=== PATIENT | female | born 1990 ===

== ENCOUNTER 2016-11-21 01:02 | Inpatient (IN) ==
[2016-11-21 00:57] LABS: Basophils % 0.4 %; Eosinophils # 0.2 K/mcL (0.0-0.6); Eosinophils % 1.9 %; Hematocrit 37.8 % (35.3-44.9); Hemoglobin 12.8 g/dL (11.5-15.4); Immature Granulocytes % 1.7 % (0-4); Lymphocytes # 2.6 K/mcL (0.6-4.6); Lymphocytes % 24.6 %; Mean Corpuscular HGB Conc 33.9 g/dL (31.6-35.5); Mean Corpuscular Hemoglobin 28.3 pg (28.0-33.3); Mean Corpuscular Volume 83.6 fL (83.0-100.0); Mean Platelet Volume 10.3 fL (9.4-12.4); Monocytes # 0.7 K/mcL (0.0-1.3); Monocytes % 6.1 %; Platelet Count 262 K/mcL (140-400); Red Blood Count 4.52 M/mcL (3.82-4.97); Red Cell Distribution Width 12.9 % (11.5-14.5); Segmented Neutrophils % 65.3 %
[2016-11-21 00:58] LABS: Bilirubin,Urine Negative (Negative); Blood,Urine Negative (Negative); Clarity,Urine Clear (Clear); Color,Urine Yellow (Yellow); Glucose,Urine (UA) Normal (Normal); Ketones,Urine Negative (Negative); Leukocyte Esterase,Urine Negative (Negative); Nitrite,Urine Negative (Negative); PH,Urine 6.5 pH Units (5.0-8.0); Protein,Urine Negative (Neg-Trace); Specific Gravity,Urine 1.012 (1.010-1.025); Urobilinogen,Urine Normal (Normal)
[~2016-11-21 01:02] MED LIST: Famotidine 20 MG/2 ML VIAL IVP PRN; Naloxone 0.4 MG/ML INJ IVP PRN; Penicillin G Potassium 5,000,000 UNIT in D5% in Water (Mini-Bag+) 100 ML IVPB ONE; Ringers Solution, Lactated 1,000 ML IVC SCH; Ringers Solution, Lactated 1,000 ML ONE
[2016-11-21 01:03] LABS: Amphetamine Screen,Urine Negative ng/mL (Cutoff=1000); Barbiturate Screen,Urine Negative ng/mL (Cutoff=200); Benzodiazepines Screen,Urine Negative ng/mL (Cutoff=200); Cannabinoid Screen,Urine Negative ng/mL (Cutoff = 50); Cocaine Screen,Urine Negative ng/mL (Cutoff= 300); Opiate Screen,Urine Negative ng/mL (Cutoff=300); Phencyclidine Screen,Urine Negative ng/mL (Cutoff=25)
[2016-11-21 03:22] LABS: Hepatitis B Surface Antigen Nonreactive (Nonreactive)
[2016-11-21] MEDS ORDERED: *HR* Nalbuphine 20 MG/ML AMPUL IM PRN (03:51)
[2016-11-21] MEDS: Penicillin G Potassium 2,500,000 UNIT in D5% in Water 100 ML IVPB SCH ×5 (05:40→22:21)
--- NOTE | 2016-11-21 09:53 | Anesthesia Evaluation PreOp ---
Date of Encounter: 11/21/16 Time of Encounter: 09:10 - Past History Planned Operation: epidural Cardiac History: Denies any Significant Hx Pulmonary History: Denies Any Significant HX HYDROCHLORIC MANUFACTURING SUPERVISOR History: Denies Any Significant HX Other Medical History: GERD Anesthesia History: No Prior Anesthetic Complications (never had anesthesia, no family history of anesthesia problems) : Yes Test: Positive Alcohol Use: none Drug use: none Medications and Allergies Cephalexin [Keflex] 500 mg PO 11/21/16 [History] Vit Calc,Iron,Folic [ Vitamins] 1 each PO 11/21/16 [History] Allergies No Known Allergies Allergy (Verified 11/21/16 00:10) - Meds/Allergy Pre-op Review Medications Reviewed: Yes Allergies Reviewed: Yes Beta Blockers on Current Med List: No Anesthesia Results - Labs 11/21/16 00:44 Anesthesia Exam 3 Vital Signs Time 0910 BP 122/70 Pulse Resp O2 Sat Height: 64 inches Weight: 83 kg NPO (# of Hours): 8 hours solids Pain Scale: 2 Pain Scale Used: Numeric (1 - 10) - HEENT Pupil (Motor): Pupils equal Mallampati: II Teeth: Normal Oral Opening: Greater than 3 - HYDROCHLORIC MANUFACTURING SUPERVISOR LOC: Oriented HYDROCHLORIC MANUFACTURING SUPERVISOR Motor: Normal RUE, Normal LUE, Normal RLE, Normal LLE, Normal Face HYDROCHLORIC MANUFACTURING SUPERVISOR Sensory: Normal: RUE, LUE, RLE, LLE, Face - Cardiac Rhythm: Regular Murmur: None JVD: No Carotid Bruit: No - Pulmonary Breath Sounds: bilateral Clear Respiratory Effort: Symmetrical - Additional Findings patient does not speak luxembourgish, all verbal interactions done through phone investor relations specialist Anesthesia Assess/Plan ASA Score: 2 Modified Marlee Scale for Level of Consciousness: Cooperative, oriented, and tranquil Anesthetic Plan: Regional Monitoring Plan: Standard Monitors
--- NOTE | 2016-11-21 10:55 | OB/GYN History & Physical ---
Date of Encounter: 11/21/16 Time of Encounter: 10:34 Assessment and Plan (1) 41 weeks gestation of Current visit: Yes Status: Acute will begin augmentation with pitocin ok for epidural if required, PCN for GBS unknown, labs drawn, anticipate History of Present Illness HPI: Ms. Peggy La is a 26 year old female @ 41+0 weeks by 2nd trimester with limited PNC who presents today in labor. She works for a [employer] and has been moving from State to state visiting clinics/ED. She is [place] speaking, reports that she has no medical problems, no surgical history and this has been uncomplicated so far. She does not report leaking, bleeding or contractions. She feels good FM. GBS unknown. Past Med Surg Social Fam HX - Past Medical History Medical history: no medical history Psychiatric history: no psych history - Past Surgical History Surgical History: no surgical history - Social History Smoking Status: Never smoker Smokeless Tobacco Status: No Alcohol use: none Drug use: none - Family History Maternal Grandmother Adopted: No Hx Family Endocrine Disorder: Yes (diabetes) Hx Family Musculoskeletal Disorders: No Hx Family Neuromuscular Disorders: No Hx Family Neurologic Disorders: No Hx Family HEENT Disorders: No Hx Family Autoimmune Disorders: No Hx Family Reproductive Disorders: No Hx Family Psychosocial Disorders: No Hx Family Medical Disorders: No Obstetrical History - Pregnancies : 1 Medications and Allergies Cephalexin [Keflex] 500 mg PO 11/21/16 [History] Vit Calc,Iron,Folic [ Vitamins] 1 each PO 11/21/16 [History] Allergies No Known Allergies Allergy (Verified 11/21/16 00:10) Review of System OB All systems PM: reviewed and no additional remarkable complaints except as stated Exam - Constitutional Constitutional: well developed - HEENT HEENT: PERRL - Neck Neck exam: supple - Lungs Respiratory exam: CTAB - Cardiovascular Cardiovascular exam: RRR - Abdomen Abdomen: Present: bowel sounds normal - Extremities Extremities exam: warm - Cervix Dilation: 4 Results Result Diagrams: 11/21/16 00:44 All other labs normal. - VTE Reasons for not Prescribing Prophylaxis: Treatment not Indicated - Low risk for VTE
[2016-11-21] MEDS ORDERED: Famotidine 20 MG/2 ML VIAL IVP PRN (11:12)
[2016-11-21] MEDS ORDERED: Naloxone 0.4 MG/ML INJ IVP PRN (11:12)
[2016-11-21] MEDS ORDERED: Ringers Solution, Lactated 1,000 ML IVC SCH (11:15)
[2016-11-21] MEDS ORDERED: Oxytocin 20 units/ LR 1000 mL 20 UNIT/1,000 ML BAG IVC SCH (11:15)
[2016-11-21] MEDS ORDERED: Oxytocin 20 units/ LR 1000 mL 20 UNIT/1,000 ML BAG IVC ONE (11:39)
--- NOTE | 2016-11-21 13:28 | OB Labor Progress Note ---
Date of Encounter: 11/21/16 Time of Encounter: 13:26 Labor Progress Note - Plan Plan: patient doing well, pitocin now @ 6 VSS FHT CAT 1, will AROM with further dilation(patient discomfort) now 4-5cm/80%/-2 cont pitocin, anticipate
[2016-11-21] MEDS ORDERED: Bupivacaine-MPF 0.25% 10 ML VIAL EP ONE (18:47)
[2016-11-21] MEDS ORDERED: *HR* FentaNYL (PF) 100 MCG/2 ML VIAL EP ONE (18:47)
[2016-11-21] MEDS ORDERED: Epidural Premix (fent/bupiv) 110 ML EP ONE (18:52)
[2016-11-21] MEDS ORDERED: Epidural Premix (fent/bupiv) 110 ML EP SCH (19:00)
--- NOTE | 2016-11-21 19:21 | Anesthesia Procedures ---
Date of Encounter: 11/21/16 Time of Encounter: 19:02 Procedures: Anesthesia - Epidural/Spinal Patient examined: Yes OB Eval: Gestational age: 40 OB Eval: : 1 OB Eval: Hx Para: 0 OB Eval: Dilated at (cm): 6 OB Eval: Contractions: Non-stressed pattern Consent Obtained: Yes Supplemental Oxygen: None/Room Air Site Prep: Aseptic Technique, Sterile prep and drape, Povidone-Iodine 1% Patient position: upright Local Anesthetic: Lidocaine 1% Amount of Local Anesthetic used: 3 Touhy Needle Gauge: 18 Touhy Needle Depth (cm): 6 Catheter Depth at Skin (cm): 12 Test Dose (1.5% Lido + Epi): Volume given (mls): 3 Test Dose Result: Negative Loading Dose: 0.25% Marcaine (mls): 10 Loading Dose: Fentanyl (mcg): 100 Loading Dose: Other: 8 ml saline Loading Dose Administered: Thru Touhy Needle Infusion Med: 0.125% Bupivacaine w/ 2 mcg/ml Fentanyl Infusion Rate (mls/hr): [address]: Tegaderm, Tape Interspace Used: L3-L4 Loss of Resistance (EZ): Yes Blood: No CSF: No Paresthesia: No Procedure: 3 Vital Signs Time 190 start 1905 cath 1914 finish BP 136/85 126/79 115/81 Pulse 93 88 80 Resp 16 16 16 O2 Sat heart tones 145 throughout procedure performed by Dr Ash
--- NOTE | 2016-11-21 20:36 | OB Labor Progress Note ---
Date of Encounter: 11/21/16 Time of Encounter: 20:31 Labor Progress Note - Plan Plan: patient AROM'ed, comfortable with epidural, VSS continue pitocin, FHT CAT 1, anticipate vaginal delivery
--- NOTE | 2016-11-21 23:33 | OB Labor Progress Note ---
Date of Encounter: 11/21/16 Time of Encounter: 23:31 Labor Progress Note - Plan Plan: Patient continues to do well, VSS cervix checked and 5-6cm, cont going up on pitocin, anticpate , FHT CAT 1
[2016-11-22] MEDS ORDERED: Ondansetron 4 MG/2 ML VIAL IM ONE (00:57)
[2016-11-22] MEDS ORDERED: Epidural Premix (fent/bupiv) 110 ML EP ONE ×2 (01:48→10:07)
--- NOTE | 2016-11-22 04:24 | OB Labor Progress Note ---
Date of Encounter: 11/22/16 Time of Encounter: 04:23 Labor Progress Note - Plan Plan: patient now 9cm, comfortable, s/p AROM, VSS, FHT CAT 1, garry regularly, anticipate , keep up on pitocin
[2016-11-22] MEDS: Penicillin G Potassium 2,500,000 UNIT in D5% in Water 100 ML IVPB SCH (05:28)
--- NOTE | 2016-11-22 08:12 | OB Labor Progress Note ---
Date of Encounter: 11/22/16 Time of Encounter: 08:10 Labor Progress Note - Subjective Subjective: patient feeling a lot of pressure - Cervix Cervix: complete/100/0 - Heart Tones Heart Tones: FHT's 140's reactive contraction every 2 min - Plan Plan: allow patient to labor down and then we will have her start pushing
[2016-11-22] MEDS ORDERED: Lidocaine/EPI 1:200k 2% PF 20 ML VIAL ONE (08:17)
[2016-11-22] MEDS ORDERED: *HR* FentaNYL (PF) 100 MCG/2 ML VIAL ONE (08:17)
--- NOTE | 2016-11-22 08:24 | Anesthesia Progress Note ---
Date of Encounter: 11/22/16 Time of Encounter: 08:23 Anesthesia Note - Note Note: 11/22/16 08:23 called for increased pain during contractions. vss. fhr stable. epidural pumped turned back up to 16 ml/hr. bolus given 5ml 2%lidocaine with epi, 100mcg fentanyl. pt tolerated well.
[2016-11-22 10:10] LABS: HIV-1&2 Antibody & p24 Ag Nonreactive (Nonreactive)
[2016-11-22 10:34] LABS: Varicella Zoster IgG Antibody Positive
[2016-11-22 10:58] LABS: Rubella IgG Antibody POSITIVE (POSITIVE)
[2016-11-22] MEDS ORDERED: Lidocaine 1% 20 ML MDV ONE (12:56)
--- NOTE | 2016-11-22 13:30 | OB/GYN Procedure Note ---
Delivery - Delivery Date: 11/22/16 Provider: Kendrick Givens Intrapartum events: prolonged labor- > = 20hr Delivery induction: none Delivery augmentation: rupture of membranes, pitocin Delivery monitor: external FHT, external uterine Anesthesia: epidural Estimated Blood Loss: 200 - (s) A Infant Delivery Date: 11/22/16 Delivery Time: 13:04 Presentation: vertex Position: VANDANA Route of delivery: Gender: Female Viability: Viable Pounds: 9 Ounces: 7 Weight Gram: 4.25 kg at 1 minute: 8 at 5 mins: 9 Shoulder Dystocia: encountered Shoulder Dystocia Maneuvers: Kierra maneuver, suprapubic pressure Specimens collected: cord blood Placenta: spontaneous Cord: 3 umbilical vessels - Complications Delivery complications: none Delivery comments: Patient is a 26-year-old 1 para 0 at 41 weeks who presented to labor and delivery in active labor. The patient is not from this area was in town with the circus, patient states that she had limited care due to her job. We were able to get a ultrasound from [place] which did place her at approximately 41 weeks. The patient was artificially ruptured and light meconium encountered. Patient progressed appropriately pushed for approximately 2 hours and delivered a viable female in right occiput anterior presentation at 1304. Mild shoulder dystocia was encountered. Kierra and suprapubic was used to get the anterior shoulder. Infant weight was 9 lbs. 7 oz. Apgars were 8 at 1 minute and 9 at [address] Givens anesthesia epidural estimated blood loss 200 mL. Patient had a small left vaginal laceration bleeding around the hymenal band repaired with a 4 Vicryl in a running locking stitch. Cervix vagina and perineum was visualized intact. Patient tolerated the delivery well will be observed 2 hours before being taken floor. He did receive preoperative antibiotics due to unknown GBS status. - Disposition Mom disposition: stable in LDR disposition: stable in LDR
[2016-11-22] MEDS ORDERED: Measles/Mumps/Rubella Vacc 0.5 ML VIAL SQ PRN (14:36)
[2016-11-22] MEDS ORDERED: Oxytocin 20 units/ LR 1000 mL 20 UNIT/1,000 ML BAG IVC SCH (14:36)
[2016-11-22] MEDS ORDERED: Acetaminophen 325 MG TABLET PO PRN (14:36)
[2016-11-23 04:46] LABS: Basophils # 0.1 K/mcL (0.0-0.2); Basophils % 0.3 %; Eosinophils # 0.2 K/mcL (0.0-0.6); Eosinophils % 1.2 %; Hematocrit 29.5 % (35.3-44.9); Lymphocytes # 2.4 K/mcL (0.6-4.6); Lymphocytes % 15.5 %; Mean Corpuscular HGB Conc 34.2 g/dL (31.6-35.5); Mean Corpuscular Hemoglobin 29.1 pg (28.0-33.3); Mean Platelet Volume 10.5 fL (9.4-12.4); Monocytes # 0.8 K/mcL (0.0-1.3); Monocytes % 5.1 %; Neutrophils # 11.9 K/mcL (1.6-8.9); Platelet Count 202 K/mcL (140-400); Red Blood Count 3.47 M/mcL (3.82-4.97); Red Cell Distribution Width 13.2 % (11.5-14.5); Segmented Neutrophils % 76.9 %
[2016-11-23 04:50] LABS: Hemoglobin 10.1 g/dL (11.5-15.4)
[2016-11-23] MEDS: Ibuprofen 600 MG TABLET PO PRN ×2 (04:50→14:56)
[2016-11-23] MEDS ORDERED: Lanolin 7 G OINT...G. TP PRN (08:24)
--- NOTE | 2016-11-23 08:24 | Discharge Summary ---
Date of Encounter: 11/23/16 Time of Encounter: 08:19 - Discharge Diagnosis (1) Status post vaginal delivery Priority: Primary Status: Acute Comments: Pt meeting milestones. Lochia light. No pain except nipple pain with . Pt ambulating and voiding freely. Tolerating regular diet. (2) Mother currently breast-feeding Priority: Secondary Status: Acute Comments: Pt has breastpump for home use. consult prior to delivery. - Discharge Medications Prescriptions: Ibuprofen [Motrin] 600 mg PO Q6HR PRN #60 tablet PRN Reason: Cramping Docusate [Colace] 100 mg PO BID #60 capsule Home Medications: Vit Calc,Iron,Folic [ Vitamins] 1 each PO 11/21/16 [History] Docusate [Colace] 100 mg PO BID #60 capsule 11/23/16 [Rx] Ibuprofen [Motrin] 600 mg PO Q6HR PRN #60 tablet 11/23/16 [Rx] Lanolin 1 appl TP Q4HR PRN #0 tube 11/23/16 [Rx] Allergies/Adverse Reactions: Allergies No Known Allergies Allergy (Verified 11/21/16 00:10) Data Procedures and tests throughout hospitalization: Laboratory Tests 11/21/16 11/21/16 11/21/16 00:44 00:44 00:44 WBC 10.7 RBC 4.52 Hgb 12.8 Hct 37.8 MCV 83.6 MCH 28.3 MCHC 33.9 RDW 12.9 Plt Count 262 MPV 10.3 Immature Gran % 1.7 Seg Neutrophils % 65.3 Lymphocytes % 24.6 Monocytes % 6.1 Eosinophils % 1.9 Basophils % 0.4 Neutrophils # 7.0 Lymphocytes # 2.6 Monocytes # 0.7 Eosinophils # 0.2 Basophils # 0.0 Urine Color Yellow Urine Clarity Clear Urine pH 6.5 Ur Specific [place] 1.012 Urine Protein Negative Urine Glucose (UA) Normal Urine Ketones Negative Urine Blood Negative Urine Nitrite Negative Urine Bilirubin Negative Urine Urobilinogen Normal Ur Leukocyte Esterase Negative Ur Culture Indicated? NO Urine Opiates Screen Negative Ur Barbiturates Screen Negative Ur Phencyclidine Scrn Negative Ur Amphetamines Screen Negative U Benzodiazepines Scrn Negative Urine Cocaine Screen Negative U Marijuana (THC) Screen Negative T.pallidum Ab Interpret Hep Bs Antigen HIV Ag/Ab Combo Qual Rubella IgG Antibody VZV IgG Antibody Blood Type Antibody Screen 11/21/16 11/21/16 11/21/16 02:35 02:35 02:35 WBC RBC Hgb Hct MCV MCH MCHC RDW Plt Count MPV Immature Gran % Seg Neutrophils % Lymphocytes % Monocytes % Eosinophils % Basophils % Neutrophils # Lymphocytes # Monocytes # Eosinophils # Basophils # Urine Color Urine Clarity Urine pH Ur Specific [place] Urine Protein Urine Glucose (UA) Urine Ketones Urine Blood Urine Nitrite Urine Bilirubin Urine Urobilinogen Ur Leukocyte Esterase Ur Culture Indicated? Urine Opiates Screen Ur Barbiturates Screen Ur Phencyclidine Scrn Ur Amphetamines Screen U Benzodiazepines Scrn Urine Cocaine Screen U Marijuana (THC) Screen T.pallidum Ab Interpret NEGATIVE Hep Bs Antigen Nonreactive HIV Ag/Ab Combo Qual Nonreactive Rubella IgG Antibody POSITIVE VZV IgG Antibody Positive Blood Type A POSITIVE Antibody Screen NEGATIVE 11/23/16 03:51 WBC 15.5 H RBC 3.47 L Hgb 10.1 L D Hct 29.5 L MCV 85.0 MCH 29.1 MCHC 34.2 RDW 13.2 Plt Count 202 MPV 10.5 Immature Gran % 1.0 Seg Neutrophils % 76.9 Lymphocytes % 15.5 Monocytes % 5.1 Eosinophils % 1.2 Basophils % 0.3 Neutrophils # 11.9 H Lymphocytes # 2.4 Monocytes # 0.8 Eosinophils # 0.2 Basophils # 0.1 Urine Color Urine Clarity Urine pH Ur Specific [place] Urine Protein Urine Glucose (UA) Urine Ketones Urine Blood Urine Nitrite Urine Bilirubin Urine Urobilinogen Ur Leukocyte Esterase Ur Culture Indicated? Urine Opiates Screen Ur Barbiturates Screen Ur Phencyclidine Scrn Ur Amphetamines Screen U Benzodiazepines Scrn Urine Cocaine Screen U Marijuana (THC) Screen T.pallidum Ab Interpret Hep Bs Antigen HIV Ag/Ab Combo Qual Rubella IgG Antibody VZV IgG Antibody Blood Type Antibody Screen Labs on day of discharge: Labs from last 24 hours 11/23/16 11/21/16 11/21/16 03:51 02:35 02:35 WBC 15.5 H RBC 3.47 L Hgb 10.1 L D Hct 29.5 L MCV 85.0 MCH 29.1 MCHC 34.2 RDW 13.2 Plt Count 202 MPV 10.5 Immature Gran % 1.0 Seg Neutrophils % 76.9 Lymphocytes % 15.5 Monocytes % 5.1 Eosinophils % 1.2 Basophils % 0.3 Neutrophils # 11.9 H Lymphocytes # 2.4 Monocytes # 0.8 Eosinophils # 0.2 Basophils # 0.1 T.pallidum Ab Interpret NEGATIVE HIV Ag/Ab Combo Qual Nonreactive Rubella IgG Antibody POSITIVE VZV IgG Antibody Positive Date of admission: 11/21/16 01:02 Primary care physician: DIGNA NO Consults: 11/22/16 14:36 Consult to Coating Line Worker [CONS] Routine Comment: Vaginal delivery, consult needed Discharging clinician: Silke Ibarra Anticipated date of discharge: 11/23/16 - Patient Status Disposition: Home, Self-Care Condition: Good Functional capacity at discharge: independent ambulation Overall status at discharge: patient is back to baseline - Discharge Instructions Follow Up With: NO,PCP [Primary Care Provider] - Additional Instructions: Follow-up with an OBGYN provider in 4-6 weeks. - Diet and Activity Activity: increase activity as tolerated Diet: regular diet Hospital Course Reason for admission: active labor Delivery: Episiotomy: none Laceration: vaginal side wall Other procedures: none complications: none Discharge diagnosis: IUP at term delivered baby: female Hospital course: - Delivery Date: 11/22/16 Provider: Kendrick Givens Intrapartum events: prolonged labor- > = 20hr Delivery induction: none Delivery augmentation: rupture of membranes, pitocin Delivery monitor: external FHT, external uterine Anesthesia: epidural Estimated Blood Loss: 200 - Infant (s) Infant A Delivery Date: 11/22/16 Delivery Time: 13:04 Presentation: vertex Position: VANDANA Route of delivery: Gender: Female Viability: Viable Pounds: 9 Ounces: 7 Weight Gram: 4.25 kg at 1 minute: 8 at 5 mins: 9 Shoulder Dystocia: encountered Shoulder Dystocia Maneuvers: Kierra maneuver, suprapubic pressure Specimens collected: cord blood Placenta: spontaneous Cord: 3 umbilical vessels - Complications Delivery complications: none Delivery comments: Patient is a 26-year-old 1 para 0 at 41 weeks who presented to labor and delivery in active labor. The patient is not from this area was [place] town with the circus, patient states that she had limited care due to her job. We were able to get a ultrasound from [place] which did place her at approximately 41 weeks. The patient was artificially ruptured and light meconium encountered. Patient progressed appropriately pushed for approximately 2 hours and delivered a viable female in right occiput anterior presentation at 1304. Mild shoulder dystocia was encountered. Kierra and suprapubic was used to get the anterior shoulder. weight was 9 lbs. 7 oz. Apgars were 8 at 1 minute and 9 at [address] Givens anesthesia epidural estimated blood loss 200 mL. Patient had a small left vaginal laceration bleeding around the hymenal band repaired with a 4 Vicryl in a running locking stitch. She did receive preoperative antibiotics due to unknown GBS status. - Disposition Mom disposition: home PPD#1 [place] disposition: home with mother, Time Attestation: Total time spent providing and/or coordinating discharge services: Time Spent: Less than 30 minutes Exam - Constitutional Vitals: Temp Pulse Resp BP Pulse Ox 98.5 F 105 16 104/66 97 11/23/16 04:33 11/23/16 04:33 11/23/16 04:33 11/23/16 04:33 11/23/16 04:33 General appearance IM: A&O X 3, no acute distress - Respiratory Respiratory exam: Present: CTAB - Cardiovascular Cardiovascular exam IM: Present: RRR, +S1, +S2 - GI/Abdominal GI/Abdominal exam IM: soft - Rectal Rectal exam: deferred - External exam: normal external exam Uterine Tone: Firm Uterus Position: At Umbilicus - Extremities Exam Extremities exam IM: Present: normal inspection, pedal edema (mild edema bilaterally) - Neurological Exam Neurological exam: normal gait, oriented X3 - Psychiatric Additional comments: reports good mood
[2016-11-23] MEDS ORDERED: Prenatal Vit/FA 1 EACH TABLET PO SCH (09:00)
[2016-11-23 09:06] VITALS: BP 96/63
== END 2016-11-23 16:35 | disposition home or self-care (01) | DRG 775 ==
LOC: 1NENULAB → 1NENUOBS 11-22 15:28
PROVIDERS: ADMIT Obstetrics & Gynecology; ATTEND Obstetrics & Gynecology